=== PATIENT | female | born 1995 ===

== ENCOUNTER 2020-12-17 00:35 | Emergency (ER) | payer OTHER ==
[~2020-12-17] VITALS: Ht 165.1 cm; Wt 68.2 kg
[2020-12-17 00:40] VITALS: BP 131/89
--- NOTE | 2020-12-17 00:47 | NUR ---
PATIENT ATTEMPTING TO GIVE CLEAN CATCH URINE
[2020-12-17 01:08] LABS: URINE HCG NEGATIVE (NEG)
[2020-12-17 01:09] LABS: CLARITY,URINE SLIGHTLY CLOUDY (Clear); COLOR,URINE YELLOW (Yellow); GLUCOSE, URINE NEGATIVE (Neg); KETONES,URINE NEGATIVE (Neg); LEUKOCYTE ESTERASE ,URINE SMALL (Neg); NITRITES, URINE NEGATIVE (Neg); OCCULT BLOOD,URINE NEGATIVE (Neg); PROTEIN,URINE NEGATIVE (Neg)
[2020-12-17 01:12] LABS: UA COLLECTION TYPE CLN CATCH MIDSTREAM
[2020-12-17 01:18] LABS: AMORPHOUS URATES 1+; BACTERIA,URINE FEW /HPF (Neg); MUCUS STRANDS MANY /LPF (Neg); RBC,URINE NONE SEEN /HPF (0-2); SQUAMOUS EPITHELIAL CELL,UR MANY /LPF (FEW)
[2020-12-17 01:23] LABS: URINE AMPHETAMINE SCREEN POSITIVE (Neg); URINE BARBITUATE SCREEN NEGATIVE (Neg); URINE BENZODIAZEPINES SCREEN NEGATIVE (Neg); URINE CANNABINOID SCREEN POSITIVE (Neg); URINE COCAINE SCREEN NEGATIVE (Neg); URINE METHADONE SCREEN NEGATIVE (Neg); URINE OPIATE SCREEN NEGATIVE (Neg); URINE PHENCYCLIDINE SCREEN NEGATIVE (Neg)
== END 2020-12-17 01:11 | disposition left against medical advice (07) ==
LOC: ER 00:36
DX: R30.0 Dysuria (principal); M25.512 Pain in left shoulder
CPT/HCPCS: 80305; 81001; 81025; 99283